=== PATIENT | male | born 1955 | race African-American/Black ===

== ENCOUNTER 2019-05-01 06:08 | Inpatient (IN) | payer BC ==
[2019-04-30 09:16] VITALS: BMI 28.8
[2019-05-01] MEDS ORDERED: HEPARIN NA (PORCINE) 5,000 UNITS/ML 1ML VIAL ONE (07:11)
[2019-05-01] MEDS ORDERED: HEPARIN NA (PORCINE) 5,000 UNITS/ML 1ML VIAL SQ ONE ×2 (07:15→14:47)
[2019-05-01] MEDS ORDERED: BUPIVACAINE HCL/PF 0.25% (2.5MG/ML) 10 ML VIAL ONE (07:18)
--- NOTE | 2019-05-01 07:46 | HP ---
Admitting History and Physical - Primary Care Physician PCP: Duc Martinez - Admission Chief Complaint: Prostate cancer History of Present Illness: 64 y/o M w/ recent diagnosis of Prostate Cancer (Blessing 3+4, PSA 5.9), here for elective robotic prostatectomy. Pt denies any cardiovascular issues or history of cardiovascular disease. Denies cp/sob, n/v/d, calf pain. Denies h/o dvt/pe. History Source: Patient Limitations to Obtaining History: No Limitations - Past Medical History DOORKEEPER: No: Alzheimer's, CVA, Dementia, Migraine, Multiple Sclerosis, Peripheral Neuropathy, Parkinson's, Seizure, Syncope, TIA, Vertigo, Other Cardiovascular: No: AFIB, Aneurysm, Aortic Insufficiency, Aortic Stenosis, CAD, CHF, Deep Vein Thrombosis, HTN, Hyperlipdemia, PR, Mitral Insufficiency, Mitral Stenosis, Murmur, Pulmonary Hypertension, Other Pulmonary: No: Asthma, Bronchitis, Cancer, COPD, O2 Dependent, Pneumonia, Previously Intubated, Pulmonary Embolus, Pulmonary Fibrosis, Sleep Apnea, Other Gastrointestinal: No: Ascites, Cancer, Constipation, Crohn's Disease, Diverticulitis, Diverticulosis, Esophageal Varices, Gastritis, GERD, GI Bleed, Hemorrhoids, Hiatal Hernia, Inflamatory Bowel Disease, Irritable Bowel Disease, Pancreatitis, Peptic Ulcer Disease, Ulcerative Colitis, Other Hepatobiliary: No: Cirrhosis, Cholelithiasis, Cholecystitis, Choledocholithiasis , Hepatitis A, Hepatitis B, Hepatitis C, Other Renal/: Yes: Other (prostate cancer) Heme/Onc: No: Anemia, B12 Deficiency, Bleeding Disorder, Cancer, Current Chemotherapy, Current Radiation Therapy, Hemochromatosis, Hypercoaguable State, Myeloproliferative Synd, Sickle Cell Disease, Sickle Cell Trait, Thrombocytopenia, Other Infectious Disease: No: AIDS, C-Diff, Herpes Zoster, HIV, MRSA, STD's, Tuberculosis, VREF, Other Rheumatology: No: Fibromyalgia, Gout, Lupus, Rheumatoid Arthritis, Sarcoidosis, Vasculitis, Other Endocrine: No: Stephen's Disease, Molina's Disease, Diabetes Insipidus, Diabetes Mellitus, Hyperparathyroidism, Hyperthyroidism, Hypothyroidism, Osteopenia, SIADH, Other - Past Surgical History Additional Past Surgical History: Neck lipoma excision 2017 - Advance Directives Advance Directives: Yes: Health Care Proxy - Smoking History Smoking history: Never smoked Have you smoked in the past 12 months: No - Alcohol/Substance Use Hx Alcohol Use: No History of Substance Use: reports: None - Social History Usual Living Arrangement: Yes: With Spouse History of Recent Travel: No Home Medications - Allergies Allergies/Adverse Reactions: Allergies Allergy/AdvReac Type Severity Reaction Status Date / Time No Known Drug Allergies Allergy Verified 04/30/19 09:21 - Home Medications Home Medications: Ambulatory Orders Acetaminophen [Tylenol -] 1,000 mg PO PRN 04/30/19 Tamsulosin HCl [Flomax] 0.4 mg PO BID 04/30/19 Review of Systems - Review of Systems Constitutional: denies: No Symptoms, Chills, Diaphoresis, Fever, Lethargy, Loss of Appetite, Malaise, Night Sweats, Unintentional Wgt. Loss, Weakness, Other Eyes: denies: No Symptoms, Blind Spots, Blurred Vision, Double Vision, Eye Pain , Floaters, Photophobia, Recent Change in Vision, Other HENT: denies: No Symptoms, Difficult Swallowing, Ear Discharge, Ear Pain, Epistaxis, Gingival Bleeding, Hearing Loss, Mouth Swelling, Nasal Congestion, Ocular Prosthesis, Throat Pain, Toothache, Ringing in Ears, Other Neck: denies: No Symptoms, Decreased ROM, Lumps, Pain on Movement, Stiffness, Swollen Glands, Tenderness, Other Cardiovascular: denies: No Symptoms, Chest Pain, Edema, Palpitations, Shortness of Breath, Other Respiratory: denies: No Symptoms, Cough, Exercise Intolerance, Hemoptysis, Orthopnea, PND, Snoring, SOB, SOB on Exertion, Wheezing, Other Gastrointestinal: denies: No Symptoms, Abdominal Pain, Bloating, Constipation, Diarrhea, Dysphagia, Indigestion, Melena, Nausea, Rectal Bleeding, Vomiting, Vomiting Blood, Other Physical Examination Vital Signs: Vital Signs Temperature 98.1 F 05/01/19 06:41 Pulse Rate 68 05/01/19 06:41 Respiratory Rate 18 05/01/19 06:41 Blood Pressure 123/80 05/01/19 06:41 O2 Sat by Pulse Oximetry (%) 100 05/01/19 06:50 Constitutional: Yes: Well Nourished, No Distress Eyes: Yes: WNL HENT: Yes: WNL Cardiovascular: Yes: Regular Rate and Rhythm, S1, S2. No: Gallop, Murmur, Rub Respiratory: Yes: CTA Bilaterally. No: Accessory Muscle Use Gastrointestinal: Yes: Normal Bowel Sounds, Soft, Abdomen, Obese. No: Tenderness Edema: No Neurological: Yes: Alert, Oriented Labs: In chart Imaging - Results EKG: Report Reviewed Assessment/Plan 64 y/o M w/ recent diagnosis of Prostate Cancer (Blessing 3+4, PSA 5.9), here for elective robotic prostatectomy. -Type and screen pending -Heparin SQ administered in pre-holding -Consent per attending
[2019-05-01] MEDS ORDERED: MIDAZOLAM HCL 2 MG/2 ML SINGLE DOSE VIAL ONE (07:49)
[2019-05-01] MEDS ORDERED: ROCURONIUM BROMIDE 50 MG/5 ML SYRINGE ONE ×3 (07:49→12:22)
[2019-05-01] MEDS ORDERED: DEXAMETHASONE SOD PHOSPHATE 4 MG/1 ML VIAL ONE ×2 (07:49→13:32)
[2019-05-01] MEDS ORDERED: PROPOFOL 20 ML ONE (07:49)
[2019-05-01] MEDS ORDERED: ePHEDrine SULFATE 50 MG/1 ML AMPULE ONE (07:49)
[2019-05-01] MEDS ORDERED: SUCCINYLCHOLINE CHLORIDE 200 MG/10 ML SYRINGE ONE (07:49)
[2019-05-01] MEDS ORDERED: DESFLURANE GAS 240 ML BOTTLE IH ONE (07:58)
[2019-05-01] MEDS ORDERED: ceFAZolin SODIUM 1 GM VIAL IVPB ONE (08:45)
[2019-05-01] MEDS ORDERED: ceFAZolin SODIUM 1 GM VIAL ONE (08:50)
[2019-05-01] MEDS ORDERED: fentaNYL CITRATE 250 MCG/5 ML VIAL ONE ×2 (09:02→11:03)
[2019-05-01] MEDS ORDERED: BUPIVACAINE HCL/PF 0.25% (2.5MG/ML) 10 ML VIAL IJ ONE (10:22)
[2019-05-01] MEDS ORDERED: NEOSTIGMINE METHYLSULFATE 0.5 MG/ML - 10 ML MDV ONE (13:16)
[2019-05-01] MEDS ORDERED: GLYCOPYRROLATE 0.2 MG/1 ML VIAL ONE (13:17)
[2019-05-01] MEDS ORDERED: KETOROLAC TROMETHAMINE 30 MG/1 ML VIAL ONE ×2 (13:32)
[2019-05-01] MEDS ORDERED: OXYBUTYNIN CHLORIDE 5 MG TABLET PO PRN (13:35)
[2019-05-01] MEDS ORDERED: diphenhydrAMINE HCL 50 MG CAPSULE PO PRN (13:35)
[2019-05-01] MEDS ORDERED: ONDANSETRON 4 MG/2 ML VIAL IVPB PRN (13:35)
[2019-05-01] MEDS ORDERED: oxyCODONE HCL 5 MG TABLET PO PRN (13:42)
--- NOTE | 2019-05-01 13:46 | OP ---
Operative Note - Note: Operative Date: 05/01/19 Pre-Operative Diagnosis: prostate cancer, bladder stones Operation: cystoscopy with bladder stone extraction, robotic assisted laparoscopic protatectomy with bilateral pelvic lymph node dissection Surgeon: Chinedu Webb Plant Culture Manager: Perlita Chavarria Anesthesiologist/CONTRACT ADMINISTRATION COORDINATOR: Ange Michael Anesthesia: General Specimens Removed: bladder stones, prostate with two samples of lymph node tissue Estimated Blood Loss (mls): 150 Drains, Volume Out (mls): 600 (rai) Fluid Volume Replaced (mls): 2,600 Operative Report Dictated: Yes
[2019-05-01] MEDS ORDERED: ACETAMINOPHEN INJECTION 100 ML IVPB ONE (14:10)
--- NOTE | 2019-05-01 14:10 | SURG ---
Surgery Senior Applications Architect Note Senior Applications Architect: Perlita Chavarria PA-C Date of Service: 05/01/19 Diagnosis: prostate cancer, bladder stones Procedure: cystoscopy with bladder stone extraction, robotic assisted laparoscopic protatectomy with bilateral pelvic lymph node dissection I was present for the entirety of the operative procedure. For further detail, please refer to operative report. Visit type - Case Type Case Type: Scheduled - New patient This patient is new to me today: Yes Date on this admission: 05/01/19
[2019-05-01] MEDS ORDERED: ACETAMINOPHEN 1000 MG/100 ML VIAL (NON FORMULARY) IVPB ONE (14:30)
[2019-05-01] MEDS ORDERED: ONDANSETRON 4 MG/2 ML VIAL IVPUSH PRN (15:03)
[2019-05-01] MEDS ORDERED: LACTATED RINGERS SOLUTION 1,000 ML IV SCH ×2 (15:15→16:00)
[2019-05-01] MEDS: SODIUM CHLORIDE 1,000 ML IV SCH (16:05)
[2019-05-01] MEDS: ACETAMINOPHEN 500 MG TABLET (FP) PO SCH (20:56)
[2019-05-01] MEDS: KETOROLAC TROMETHAMINE 10 MG TABLET PO SCH ×2 (21:00→23:45)
[2019-05-01] MEDS: DOCUSATE SODIUM 100 MG CAPSULE (FP) PO SCH (21:00)
[2019-05-02] MEDS: ACETAMINOPHEN 500 MG TABLET (FP) PO SCH ×2 (02:05→08:24)
[2019-05-02] MEDS: SODIUM CHLORIDE 1,000 ML IV SCH ×2 (04:16→13:59)
[2019-05-02] MEDS: KETOROLAC TROMETHAMINE 10 MG TABLET PO SCH ×2 (06:09→14:02)
[2019-05-02 08:45] LABS: HEMATOCRIT 32.6 % (35.4-49); HEMOGLOBIN 11.3 GM/dL (11.7-16.9); MCH 31.4 pg (25.7-33.7); MCHC 34.6 g/dl (32.0-35.9); MEAN CELL VOLUME 90.6 fl (80-96); MEAN PLT VOLUME 8.6 fl (7.5-11.1); PLATELET COUNT 178 K/MM3 (134-434); RBC 3.59 M/mm3 (4.00-5.60); RDW 14.2 % (11.9-15.9); WHITE BLOOD COUNT 10.9 K/mm3 (4.0-10.0)
[2019-05-02 08:56] LABS: BLOOD UREA NITROGEN 17.6 mg/dL (7-18); CALCIUM 8.4 mg/dL (8.5-10.1); CREATININE 1.3 mg/dL (0.55-1.3)
[2019-05-02] MEDS: DOCUSATE SODIUM 100 MG CAPSULE (FP) PO SCH (11:18)
--- NOTE | 2019-05-02 11:19 | DS ---
Physical Exam: SUBJECTIVE: Patient seen and examined this am. He states that he had pain immediately after surgery but improved overnight. Passed flatus/small BM yesterday. No nausea or emesis with clears. No CP/. OBJECTIVE: Vital Signs Temperature 99 F 05/02/19 06:47 Pulse Rate 64 05/02/19 06:47 Respiratory Rate 20 05/02/19 06:47 Blood Pressure 115/62 05/02/19 06:47 O2 Sat by Pulse Oximetry (%) 98 05/01/19 21:00 Rai cath: 3200 clear yellow to light white urine PHYSICAL EXAM GENERAL: The patient is awake, alert, and fully oriented, in no acute distress. LUNGS: Breath sounds equal, clear to auscultation bilaterally.. HEART: Regular rate and rhythm. ABDOMEN: Soft, nondistended, incisional tenderness. Inc c/d/i with dermabond. EXTREMITIES: No edema, calf tenderness b/l. SCDs in place. LABS CBC,CMP WBC 10.9 K/mm3 (4.0-10.0) H 05/02/19 07:00 RBC 3.59 M/mm3 (4.00-5.60) L 05/02/19 07:00 Hgb 11.3 GM/dL (11.7-16.9) L 05/02/19 07:00 Hct 32.6 % (35.4-49) L 05/02/19 07:00 MCV 90.6 fl (80-96) 05/02/19 07:00 MCH 31.4 pg (25.7-33.7) 05/02/19 07:00 MCHC 34.6 g/dl (32.0-35.9) 05/02/19 07:00 RDW 14.2 % (11.9-15.9) 05/02/19 07:00 Plt Count 178 K/MM3 (134-434) 05/02/19 07:00 MPV 8.6 fl (7.5-11.1) 05/02/19 07:00 Sodium 143 mmol/L (136-145) 05/02/19 07:00 Potassium 4.0 mmol/L (3.5-5.1) 05/02/19 07:00 Chloride 109 mmol/L (98-107) H 05/02/19 07:00 Carbon Dioxide 28 mmol/L (21-32) 05/02/19 07:00 Anion Gap 6 MMOL/L (8-16) L 05/02/19 07:00 BUN 17.6 mg/dL (7-18) 05/02/19 07:00 Creatinine 1.3 mg/dL (0.55-1.3) 05/02/19 07:00 Est GFR (CKD-EPI)AfAm 67.78 05/02/19 07:00 Est GFR (CKD-EPI)NonAf 58.48 05/02/19 07:00 Random Glucose 119 mg/dL (74-106) H 05/02/19 07:00 Calcium 8.4 mg/dL (8.5-10.1) L 05/02/19 07:00 HOSPITAL COURSE: The patient was admitted to the med-surgical unit s/p robotic assisted prostatectomy. His pain was managed with oral tylenol/toradol. The patient tolerated a clear liquid diet, passed flatus and had a small bowel movement. His rai was draining clear/yellow urine. DVT ppx with achieved with pre-op dose of heparin SQ, SCDs and early ambulation. The patient was given discharge instructions regarding his rai care/wound care and follow-up. Date of Admission:05/01/19 Date of Discharge: 05/02/19 Minutes to complete discharge: 20 Visit type - Case Type Case Type: Scheduled - Emergency Emergency Visit: No - New patient This patient is new to me today: No
--- NOTE | 2019-05-02 12:19 | OP ---
DATE OF OPERATION: 05/01/2019 PREOPERATIVE DIAGNOSIS: Prostate cancer. POSTOPERATIVE DIAGNOSIS: Prostate cancer. ADDITIONAL PREOPERATIVE DIAGNOSIS: Bladder stone. ADDITIONAL POSTOPERATIVE DIAGNOSIS: Bladder stone. PROCEDURE: 1. Cystoscopy and basket retrieval of bladder stone. 2. Robotic-assisted laparoscopic radical prostatectomy and bilateral pelvic lymph node dissection. DESCRIPTION: The patient was brought to the operating room. Timeout was called. All pressure points were padded. He was prepped and draped in the usual fashion for cystoscopy. We initially began with the cystoscopy and basket extraction of the stone. A flexible cystoscope was introduced into the urethra and the bladder was entered. Two small stones measuring 3 mm each were identified in the bladder. Using a basket, each stone was individually grasped and removed from the bladder through the urethra. A full cystoscopy was then completed and no other bladder abnormalities or stones were identified. The patient was then re-prepped and redraped for robotic radical prostatectomy. A Nicole catheter was placed in the bladder. Initial pneumoperitoneum was obtained using a Veress needle. Subsequently an 8-mm camera port was placed and robotic camera was used and the abdomen was explored. No bowel injuries were identified. Three additional 8-mm ports and one 12-mm assistant to the ceo port were placed under vision. The robot was brought to the patient's bedside and docked. We identified a few intraabdominal adhesions, which were taken down sharply. The bladder was dropped from the anterior attachment to the abdominal wall. The prostate was then defatted and this fat was sent for pathological examination. The endopelvic fascia was opened on both sides. Superficial veins were cauterized and a DVC stitch of 0 PDS was placed. The anterior bladder neck was then incised and the dissection proceeded towards the posterior bladder neck up to the vas deferens and seminal vesicles. The rectoprostatic fascia was incised and the dissection was carried distally towards the apex. At that point, bilateral nerve sparing was performed and dissection was pursued laterally up to the apex. On the right, an intrafascial nerve sparing procedure was performed. On the left, an intrafascial nerve sparing procedure was performed. Prostatic vascular pedicles were then controlled using Weck clips, bilaterally. The DVC was then divided and the urethra was transected using cold scissors. Following complete urethral transsection, the prostate was then mobilized and freed from its posterior attachments and placed in the right upper quadrant. A frozen section from the left neurovascular bundle, which was suspicious for residual prostate tissue was sent and returned negative for carcinoma. The prostatic basin was then irrigated with saline. The bedside assistant to the ceo placed a finger in the rectum and no rectal injury was observed, with no visible blood noted on the surgical instruments inspector's glove. Bilateral pelvic lymph node dissection was performed in the usual fashion between the external iliac and the obturator nerves bilaterally. The prostate and lymph nodes were then placed together in an EndoCatch bag. At this point, hemostasis was assessed and maintained in the prostatic fossa. The urethrovesical anastomosis was then performed using 2-0 Monocryl suture on a UR-6 needle in a running anastomotic technique. The anastomosis was tested with 60 mL of saline and was watertight. A Tyler-Brizuela drain was not placed. The 12-mm assistant to the ceo port was closed using the Jeovanny-Omar device with 0 Vicryl. The specimen was extracted after enlarging the umbilical incision. The fascia was then closed using running 0 Vicryl. The skin was closed using 4-0 Monocryl and covered with Dermabond. Marcaine was injected into each incision site. The patient was extubated in the operating room and taken to recovery room in good condition. There was no accidental lacerations during the procedure. Estimated blood loss was 150 mL. JCARLOS JIMENEZ MD [id number]
--- NOTE | 2019-05-02 15:02 | PN ---
Progress Note (short form) - Note Progress Note: Anesthesia POD#1 S/P Radical Robotic Prostatectomy under GA VSS,no N/V,pain is under control. A/P No complications to anesthesia seen. Winifred Coughlin MD.
[2019-05-02 17:52] VITALS: BP 140/78; PULSE 77; TEMP 98.2
== END 2019-05-02 15:10 | disposition home or self-care (01) | DRG 708 ==
LOC: JSAMEDAYSX 06:08 → EDSTATUS 08:00 → J8W 16:48
PROVIDERS: ADMIT Urology; ATTEND Urology
PROC: 07TC4ZZ Resection of Pelvis Lymphatic, Percutaneous Endoscopic Approach (ICD-10-PCS; 2019-05-01)
PROC: 0TCB8ZZ Extirpation of Matter from Bladder, Via Natural or Artificial Opening Endoscopic (ICD-10-PCS; 2019-05-01)
PROC: 8E0W8CZ Robotic Assisted Procedure of Trunk Region, Via Natural or Artificial Opening Endoscopic (ICD-10-PCS; 2019-05-01)
PROC: 0VT04ZZ Resection of Prostate, Percutaneous Endoscopic Approach (ICD-10-PCS; principal; 2019-05-01 08:00)
DX: C61 Malignant neoplasm of prostate (principal); N21.0 Calculus in bladder
CPT/HCPCS: 36415; 80048; 85027; 86850; 86900; 86901; 94760; J0131; J1644; J7030